=== PATIENT | female | born 2000 | race Caucasian/White ===

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

== ENCOUNTER 2018-10-29 03:44 | Emergency (ER) | payer MEDICAID ==
[~2018-10-29] VITALS: Ht 167.6 cm; Wt 56.0 kg
[~2018-10-29 03:44] MED LIST changes: +FLUO20CA19 PO; +OLAN2.5T10 PO; +TRAZ50TA66 PO; +[UNRECOGNIZED DRUG - CODE] IM
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
--- NOTE | 2018-10-29 04:10 | NUR ---
ERP at bedside.
--- NOTE | 2018-10-29 04:56 | NUR ---
per ERP patient refused to go to [facility]. sweat shirt ,scrub pants and cab voucher provided. discharged with instruction. verbalized understanding. walked to lobby by female prosthetic technician.
[2018-10-29 04:59] VITALS: BP 97/72
== END 2018-10-29 05:01 | disposition home or self-care (01) ==
LOC: ED 04:50
DX: T76.21XA Adult sexual abuse, suspected, initial encounter (principal); F15.929 Other stimulant use, unspecified with intoxication, unspecified; Z72.9 Problem related to lifestyle, unspecified; Y04.8XXA Assault by other bodily force, initial encounter; Y93.89 Activity, other specified; Y92.89 Other specified places as the place of occurrence of the external cause
CPT/HCPCS: 99283

== ENCOUNTER 2018-12-22 09:40 | Emergency (ER) | payer MEDICAID ==
[~2018-12-22] VITALS: Ht 160 cm; Wt 50.0 kg
[2018-12-22 09:42] VITALS: BP 160/131
== END 2018-12-22 22:46 | disposition home or self-care (01) ==
LOC: ED 19:25
DX: F23 Brief psychotic disorder (principal); J45.909 Unspecified asthma, uncomplicated; F32.9 Major depressive disorder, single episode, unspecified; F41.9 Anxiety disorder, unspecified; Z72.9 Problem related to lifestyle, unspecified
CPT/HCPCS: 36415; 80053; 80307; 84703; 85025; 96372; 99284; J3486

== ENCOUNTER 2019-03-14 06:19 | Emergency (ER) | payer MEDICAID ==
[~2019-03-14] VITALS: Ht 162.6 cm; Wt 52.0 kg
--- NOTE | 2019-03-14 06:54 | NUR ---
REPORT TAKEN FROM PRABHJOT LABOY. PT RESTING ON ROBY. NADN. T[place]OCOS. CALL LIGHT IN REACH.
[2019-03-14 07:16] LABS: BASOPHILS # (AUTO) 0.03 x10^3/uL (0-0.3); BASOPHILS % (AUTO) 0 % (0-1); EOSINOPHILS # (AUTO) 0.77 x10^3/uL (0-0.8); EOSINOPHILS % (AUTO) 7 % (1-7); LYMPHOCYTES # (AUTO) 1.14 x10^3/uL (1-6.1); LYMPHOCYTES % (AUTO) 11 % (22-44); MD NO; MEAN CORPUSCULAR HEMOGLOBIN 31.5 pg (27.0-34.8); MEAN CORPUSCULAR HGB CONC 33.9 g/dL (32.4-35.8); MEAN CORPUSCULAR VOLUME 92.9 fL (80-100); MEAN PLATELET VOLUME 8.7 fL (7.4-10.4); MONOCYTES % (AUTO) 8 % (2-9); NEUTROPHILS # (AUTO) 7.79 x10^3/uL (1.8-8.0); NEUTROPHILS % (AUTO) 74 % (42-75); PLATELET COUNT 296 x10^3/uL (130-400); RED BLOOD COUNT 4.19 x10^6/uL (3.82-5.3); RED CELL DISTRIBUTION WIDTH 13.7 % (9.6-15.2)
--- NOTE | 2019-03-14 07:21 | NUR ---
RADIOLOGY AT BEDSIDE.
[2019-03-14 07:33] LABS: ALBUMIN 3.3 g/dL (3.4-5.0); ANION GAP 8 mmol/L (5-15); CALCIUM 8.7 mg/dL (8.5-10.1); CHLORIDE 112 mmol/L (98-107)
[2019-03-14 07:35] LABS: CREATININE 0.87 mg/dL (0.55-1.02)
--- NOTE | 2019-03-14 07:49 | NUR ---
PT RESTING ON GURNEY. NADN. PRO.
--- NOTE | 2019-03-14 07:49 | NUR ---
PT UP FOR RECHECK AT THIS TIME.
[2019-03-14] MEDS ORDERED: POTASSIUM CHLORIDE 20 MEQ PACKET ONE (08:09)
--- NOTE | 2019-03-14 08:11 | NUR ---
PT MEDICATED PER EMAR. RESTING ON GURNEY. NADN. VSS. PROVIDED WITH FOOD AND WATER AND COFFEE.
[2019-03-14] MEDS ORDERED: POTASSIUM CHLORIDE 20 MEQ PACKET PO ONE (08:30)
[2019-03-14 08:59] VITALS: BP 122/83
--- NOTE | 2019-03-14 08:59 | NUR ---
PT RESTING ON GREG. VSS. BYRD.
== END 2019-03-14 09:16 | disposition home or self-care (01) ==
LOC: ED 09:05
DX: B34.9 Viral infection, unspecified (principal); F15.129 Other stimulant abuse with intoxication, unspecified; J45.909 Unspecified asthma, uncomplicated
CPT/HCPCS: 36415; 71045; 80048; 82040; 85025; 85379; 93005; 99284

== ENCOUNTER 2019-04-04 06:06 | Emergency (ER) | payer MEDICAID ==
[~2019-04-04] VITALS: Ht 162.6 cm; Wt 60.0 kg
[2019-04-04 06:11] VITALS: BP 108/61
--- NOTE | 2019-04-04 06:14 | NUR ---
Pt presents to ed c/o si and hi s/t depression. Denies any specific plans. Moved to room [address] Sitter in hallway. Awaiting md assessment.
--- NOTE | 2019-04-04 06:30 | NUR ---
Pt informed of need for ua. "i just cant right now."
--- NOTE | 2019-04-04 06:55 | NUR ---
REPORT FROM PRABHJOT KNOWLES. POC DISCUSSED. PT SLEEPING IN [facility]. ROOM SECURED. NO BELONGINGS NOTED. SITTER OUTSIDE ROOM.
[2019-04-04 07:03] LABS: BASOPHILS # (AUTO) 0.05 x10^3/uL (0-0.3); BASOPHILS % (AUTO) 1 % (0-1); EOSINOPHILS # (AUTO) 0.45 x10^3/uL (0-0.8); EOSINOPHILS % (AUTO) 7 % (1-7); LYMPHOCYTES # (AUTO) 2.53 x10^3/uL (1-6.1); LYMPHOCYTES % (AUTO) 41 % (22-44); MD NO; MEAN CORPUSCULAR HEMOGLOBIN 30.9 pg (27.0-34.8); MEAN CORPUSCULAR HGB CONC 33.1 g/dL (32.4-35.8); MEAN CORPUSCULAR VOLUME 93.3 fL (80-100); MEAN PLATELET VOLUME 8.8 fL (7.4-10.4); MONOCYTES # (AUTO) 0.49 x10^3/uL (0-1.4); MONOCYTES % (AUTO) 8 % (2-9); NEUTROPHILS % (AUTO) 43 % (42-75); PLATELET COUNT 339 x10^3/uL (130-400); RED BLOOD COUNT 4.25 x10^6/uL (3.82-5.3); RED CELL DISTRIBUTION WIDTH 13.7 % (9.6-15.2)
[2019-04-04 07:15] LABS: ALANINE AMINOTRANSFERASE 22 U/L (12-78); ALBUMIN 3.8 g/dL (3.4-5.0); ANION GAP 6 mmol/L (5-15); CALCIUM 8.7 mg/dL (8.5-10.1); CHLORIDE 111 mmol/L (98-107); CREATININE 0.73 mg/dL (0.55-1.02)
[2019-04-04 07:18] LABS: SALICYLATE LEVEL < 1.7 mg/dL (2.8-20.0)
[2019-04-04 07:20] LABS: ALKALINE PHOSPHATASE 57 U/L (45-117); BILIRUBIN,TOTAL 0.6 mg/dL (0.2-1.0); TOTAL PROTEIN 7.1 g/dL (6.4-8.2)
--- NOTE | 2019-04-04 07:32 | NUR ---
PATIENT REFUSING TO GIVE URINE SAMPLE AT THIS TIME.
--- NOTE | 2019-04-04 08:51 | NUR ---
PATIENT ASKED FOR URINE SAMPLE. REFUSING TO GIVE SAMPLE AT THIS TIME.
--- NOTE | 2019-04-04 09:39 | NUR ---
PT GIVEN D/C PAPERWORK. PT GIVEN BELONGINGS. PT STATING SHE HAS NO WHERE TO GO. OFFERED TAXI VOUCHER TO [facility] AND SHE STATES SHE DOES NOT WANT TO GO THERE. PATIENT TOLD TO DECIDE IF THERE IS SOMEWHERE ELSE SHE WANTS TO GO.
--- NOTE | 2019-04-04 10:00 | NUR ---
PATIENT TO BE D/C. HAS NOT STATED ANY SI/HI THOUGHTS TO MYSELF. PT GIVEN BELONGINGS TO GET DRESSED.
--- NOTE | 2019-04-04 10:57 | NUR ---
PT GIVEN D/C PAPERWORK AND SOME CRACKERS. PT AMUBLATED OUT OF DEPARTMENT WITH STEADY GAIT.
== END 2019-04-04 10:59 | disposition home or self-care (01) ==
LOC: ED 10:46
DX: F32.9 Major depressive disorder, single episode, unspecified (principal); J02.9 Acute pharyngitis, unspecified; Z72.9 Problem related to lifestyle, unspecified; J45.909 Unspecified asthma, uncomplicated
CPT/HCPCS: 36415; 71045; 80053; 80307; 84703; 85025; 99284

== ENCOUNTER 2019-05-13 06:58 | Emergency (ER) | payer MEDICAID ==
[~2019-05-13] VITALS: Ht 160 cm; Wt 58.4 kg
[2019-05-13 07:00] VITALS: BP 135/77
--- NOTE | 2019-05-13 07:26 | NUR ---
SORE THROAT, COUGH, CONGESTION, SINUS CONGESTION, LEFT EYE REDNESS
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
--- NOTE | 2019-05-13 09:45 | NUR ---
PROVIDED SNACKS AT DISCHARGE. AMBULATED TO DISCHARGE WINDOW, STEADY GAIT
== END 2019-05-13 09:47 | disposition home or self-care (01) ==
LOC: ED 07:51
DX: S09.90XA Unspecified injury of head, initial encounter (principal); J06.9 Acute upper respiratory infection, unspecified; X58.XXXA Exposure to other specified factors, initial encounter; Y93.89 Activity, other specified; Y92.89 Other specified places as the place of occurrence of the external cause; Y99.8 Other external cause status
CPT/HCPCS: 70450; 71046; 99284

== ENCOUNTER 2019-06-11 09:15 | Emergency (ER) | payer MEDICAID ==
[~2019-06-11] VITALS: Ht 162.6 cm; Wt 52.5 kg
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
--- NOTE | 2019-06-11 10:00 | NUR ---
PT UPRIGHT ON GURNEY AWAKE & MOSTLY, TEARFUL AT TIMES- REASSUARNCE SOMETIMES HELPFUL, REFUSES LABS, ROSA MARIA & SOME XR'S- PA AWARE, COMFORT MEASURES PROVIDED, CALL LIGHT WITHIIN REACH.
[2019-06-11 10:30] LABS: AMPHETAMINE SCREEN, URINE Positive (Negative); BARBITURATE SCREEN, URINE Negative (Negative); BENZODIAZEPINE SCREEN, URINE Negative (Negative); CANNABINOID SCREEN, URINE Negative (Negative); COCAINE SCREEN, URINE Negative (Negative); METHADONE SCREEN, URINE Negative (Negative); OPIATE SCREEN, URINE Negative (Negative)
[2019-06-11] MEDS ORDERED: LORazepam 1MG TABLET PO ONE (10:30)
--- NOTE | 2019-06-11 10:35 | NUR ---
Psych [employer]URE TEACHER paged. Message left in voicemail.
[2019-06-11] MEDS ORDERED: ZIPRASIDONE 20 MG INJ IM ONE ×2 (10:36→11:30)
--- NOTE | 2019-06-11 10:40 | NUR ---
PT BECAMING MORE AGITATED & RESTLESS (PACING IN/OUT OF ROOM, TALKING TO HERSELF, DEMANDING FOOD), CONTNIUES TO REFUSE CARE (VS, LABS)- PA & ERP AWARE; MED ORDERED BUT PT REFUSES ADMINISTRATION- PA AWARE.
--- NOTE | 2019-06-11 11:09 | NUR ---
ERP ORDERED IM MED FOR AGITATION & RESLTESSNESS, SECURITY CALLED FOR ASSISTANCE IN ADMIN IT, PT QUIETLY LAYING ON GREG, BALDEMAR, REFUSES TO ANSWER QUESTIONS, NO NEEDS AT THIS TIME, WCTMF.
--- NOTE | 2019-06-11 11:15 | NUR ---
3E SECOND GRADE TEACHER AT BS.
--- NOTE | 2019-06-11 12:02 | NUR ---
PT SLEEPING ON GURNEY, NAD WITH EQUAL CHEST RISE/FALL, SITTER IN VIEW.
--- NOTE | 2019-06-11 12:18 | NUR ---
MEAL TRAY GIVEN
[2019-06-11 12:52] LABS: MEAN CORPUSCULAR HEMOGLOBIN 30.4 pg (27.0-34.8); MEAN CORPUSCULAR HGB CONC 33.8 g/dL (32.4-35.8); MEAN PLATELET VOLUME 8.1 fL (7.4-10.4); PLATELET COUNT 382 x10^3/uL (130-400); RED BLOOD COUNT 3.78 x10^6/uL (3.82-5.3); RED CELL DISTRIBUTION WIDTH 14.2 % (9.6-15.2)
[2019-06-11 12:58] LABS: ALANINE AMINOTRANSFERASE 20 U/L (12-78); ALBUMIN 3.4 g/dL (3.4-5.0); ANION GAP 5 mmol/L (5-15); CALCIUM 8.7 mg/dL (8.5-10.1); CHLORIDE 110 mmol/L (98-107); CREATININE 0.79 mg/dL (0.55-1.02)
[2019-06-11] MEDS ORDERED: DIPHENHYDRAMINE 50 MG CAPSULE PO PRN (13:00)
[2019-06-11] MEDS ORDERED: DIPHENHYDRAMINE 50 MG/ML, 1ML IM PRN (13:00)
[2019-06-11] MEDS ORDERED: HALOPERIDOL 5 MG/ML IM PRN (13:00)
[2019-06-11] MEDS ORDERED: HALOPERIDOL 5 MG TABLET PO PRN (13:00)
[2019-06-11] MEDS ORDERED: LORazepam 1MG TABLET PO PRN (13:00)
[2019-06-11] MEDS ORDERED: LORazepam 2 MG/ML, 1ML IM PRN (13:00)
--- NOTE | 2019-06-11 13:00 | NUR ---
PT CONTINUES SEEPING ON GREG, NAD WITH EQUAL CHEST RISE/FALL, SITTER IN VIEW. Addendum: 06/11/19 at 1302 by GEORGIE PT SLEEPING ON GREG, DOES NOT WANT MEAL TRAY AT THIS TIME, NAD WITH EQUAL CHEST RISE/FALL, SITTER IN VIEW.
[2019-06-11 13:03] LABS: ALKALINE PHOSPHATASE 67 U/L (45-117); BILIRUBIN,TOTAL 0.6 mg/dL (0.2-1.0); TOTAL PROTEIN 7.2 g/dL (6.4-8.2)
[2019-06-11 13:06] LABS: SALICYLATE LEVEL < 1.7 mg/dL (2.8-20.0)
[2019-06-11 13:08] LABS: BASOPHILS # (AUTO) 0.04 x10^3/uL (0-0.3); BASOPHILS % (AUTO) 0 % (0-1); EOSINOPHILS # (AUTO) 0.07 x10^3/uL (0-0.8); EOSINOPHILS % (AUTO) 1 % (1-7); LYMPHOCYTES # (AUTO) 2.13 x10^3/uL (1-6.1); LYMPHOCYTES % (AUTO) 19 % (22-44); MD SCAN; MONOCYTES # (AUTO) 0.63 x10^3/uL (0-1.4); MONOCYTES % (AUTO) 6 % (2-9); NEUTROPHILS # (AUTO) 8.41 x10^3/uL (1.8-8.0); NEUTROPHILS % (AUTO) 75 % (42-75)
--- NOTE | 2019-06-11 14:01 | NUR ---
PT CONTINUES SLEPPING CALMLY ON GURNEY, MORE COOPERATIVE WITH CARE, NAD, NO NEEDS AT THIS TIME, SITTER IN VIEW.
--- NOTE | 2019-06-11 15:01 | NUR ---
PT MOSTLY SLEPPING CALMLY ON GURNEY, COOPERATIVE WITH CARE, AMBULATES STEADILY TO BR PRN, NAD, NO NEEDS AT THIS TIME, SITTER IN VIEW.
[2019-06-11 16:45] VITALS: BP 126/60
--- NOTE | 2019-06-11 17:11 | NUR ---
Patient given discharge instructions and they have confirmed that they understand the instructions. Patient ambulatory with steady gait.
[2019-06-11] MEDS ORDERED: OLANZAPINE 2.5 MG TABLET PO SCH (21:00)
== END 2019-06-11 17:12 | disposition home or self-care (01) ==
LOC: ED 11:34
DX: F25.8 Other schizoaffective disorders (principal); F15.151 Other stimulant abuse with stimulant-induced psychotic disorder with hallucinations
CPT/HCPCS: 36415; 73130; 80053; 80307; 84703; 85025; 96372; 99284; J3486